=== PATIENT | male | born 1970 | race Caucasian/White ===

== ENCOUNTER 2024-07-24 06:10 | Day surgery (SDC) | payer OTHER, SELFPAY ==
--- NOTE | 2024-07-23 11:14 | HPE_ITS ---
Date of service: 07/24/24 Time of Service: 10:21 Assessment and Plan Assessment and plan (1) Inguinal hernia, bilateral: Status: Acute Assessment and plan: Bilateral inguinal hernias, right greater than left. The patient was provided with a hernia booklet. The potential risks and benefits of hernia repair surgery were discussed with him. Post-surgery, he was advised to apply ice to the surgical area and to alternate between Tylenol and ibuprofen for the first 3 days. He was also advised to avoid heavy lifting and driving for 3 days post-surgery. Patient does desire repair and we will go ahead and schedule him for surgery today. Pt did Stop smoking. Patient has not had a low-dose lung screening CT is encouraged to do this Patient has not had a colonoscopy is encouraged to do this as well. I discussed the nature of inguinal hernias with the patient: how they form, and consequences of incarceration.? We discussed the warning signs of incarcerations (Severe pain/hardness and inability to reduce the hernia/vomiting/redness and fever) ?and when/how to seek medical attention (our office/PCP or ED).? ?I discussed the surgery in detail and the complications related to the surgery and the anesthesia.? I do recommend that the pt have a nerve block for postop pain control.? We also discussed multi-modality pain management.? Pt. expressed understanding; all questions were answered to the patient satisfaction and they do wish to proceed with surgery.? Patient was given an educational booklet & and a copy of the postop instructions and expressed understanding of how to care for themselves after surgery. Risks of the surgery include but are not limited to: Bleeding/infection/pneumonia/damage to blood vessels or bladder or?bowels/blood clots or PE/chronic pain/urinary retention/chronic numbness/reoccurrence/reaction to mesh requiring removal/damage to testicle or sterility/complications of anesthesia.?We also discussed the possibility of postop urinary retention and swelling/ bruising. ?The pt will have a pre-Op PE to ensure fitness for anesthesia, and preOp cardiac testing as deemed necessary. ?The procedure will be done with abx and under sterile conditions. This is an outpt day surgery.? ??The pt requires a ride home from surgery and someone to stay with the pt for 24 hrs after anesthesia.? No lifting over 5 pounds for 2-3 weeks after surgery.? Also take Miralax postop to avoid constipation. (2) GERD (gastroesophageal reflux disease): Status: Chronic (3) Former smoker: Status: Acute (4) Hiatal hernia with GERD without esophagitis: History of Present Illness Narrative: Patient is here today for R inguinal hernia repair. They not having any chest pain or shortness of breath, currently.? They are not experiencing any fever or chills.? They deny any productive cough or upper respiratory tract infection signs or symptoms.? They are not having abdominal pain, or nausea and vomiting.? They have not had any changes in medications, past medical history or past surgical history since previously being seen in the office. They have not had any accidents or have been in the ER since the clinic pre-operative evaluation. ??I reviewed the procedure with the patient today, including risks and benefits of the procedure, and what they could expect at home for recovery.? All questions are answered to the patient?s satisfaction today, and they are stable to proceed with the proposed procedure. 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 Pt reports right side worse than left, pain level today is 0/10. Pt notes lifting brings pain on. 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 quit smoking 2 months ago mi/cva- no CDM- no denies pulmonary GERD- occ none since he stopped eating abanaas. PSHX L shoulder shoulder R index finger- foreign body anesthesia: no problems The patient is a 52-year-old male who presents for evaluation of bilateral inguinal hernias, right greater than left. He has been living with the hernias since 2017, but they are now causing him discomfort. He has no history of heart attack or stroke, and does not experience chest pain or shortness of breath when climbing stairs. He is not diabetic. He also denies any emphysema, sleep apnea, or asthma. He occasionally experiences heartburn and indigestion, for which he takes Rolaids with his lunch pill and Tums. He is not currently on any medication for these symptoms. Since e liminating bananas from his diet, he has not experienced heartburn. His surgical history includes left shoulder surgery to repair a tendon, right hand surgery to remove metal from the index finger, and left shoulder surgery. He has no known problems with anesthesia. He denies any pain, difficulty moving his bowels, or blood in his stools. He has gained weight but denies any unexplained weight loss . He denies any constipation or straining with bowel movements or urination. He has never had hernia repairs. His job does not involve heavy lifting. Review of Systems All systems reviewed & are unremarkable except as noted in HPI and below PFSH All Active Problems Former smoker (Acute) GERD (gastroesophageal reflux disease) (Chronic) Inguinal hernia, bilateral (Acute) Medical History Erectile dysfunction Pain in left foot Elevated blood pressure reading without diagnosis of hypertension Furuncle Hiatal hernia with GERD without esophagitis Varicocele Anxiety Herpes simplex virus (HSV) infection Social History Smoking/Tobacco Use Status: Former Tobacco Use Quit Date: 03/17/24 Smoking risk assessment performed?: Yes Alcohol Intake: current Alcohol Intake frequency: a few times a week Drug use: Never Substance use type: does not use Housing: house Do you feel safe at home: Yes Do you feel safe in your relationship?: Yes Meds Allergies and Home Medications Allergies Allergy/AdvReac Type Severity Reaction Status Date / Time No Known Allergies Allergy Verified 07/24/24 06:17 Home Medications ?Medication ?Instructions ?Recorded ?Confirmed ?Type valacyclovir 1 gram tablet 1,000 mg PO DAILY 04/30/24 07/23/24 History (Valtrex) Exam Narrative Exam Narrative: PHYSICAL EXAM GENERAL APPEARANCE: Alert, healthy appearance, oriented, x 3,? in no acute distress HYDRATION: Well hydrated HEAD, EYES, EARS, NECK, THROAT: Head is normocephalic, pupils equal, round, reactive to light and accommodation, ocular movement intact, sclera clear and no jaundice. ?Dentition intact. LUNGS: normal respiration/normal chest excursion. ?Clear to auscultation bilaterally. ?No wheeze. ?HEART: Regular rate and rhythm. no murmurs ABDOMEN: soft and non-tender to palpation.? Normal bowel sounds.? R ing hernia: Time Spent Time spent with Patient: <40 minutes Time was spent: preparing to see the patient(eg.review tests), obtaining and/or reviewing separately otained hiistory, ordering medications,tests, procedures, referring, communicating with other health restorative care technician, indepentently interpreting results, counseling the patient, care coordination and other
--- NOTE | 2024-07-23 11:21 | PDOC.DSDIS_ITS ---
Date of service: 07/24/24 Time of Service: 10:21 Discharge Plan Disposition Patient Disposition: Home Condition: Good Discharge Details Reason For Visit: hernia repair Attending Provider: Thao Blanton Primary Care Provider: Jeanette Fernando Home Meds and New Rx's Prescriptions: New tramadol 50 mg tablet 50 mg PO Q6H PRNQty: 14 0RF Continued valacyclovir [Valtrex] 1 gram tablet 1,000 mg PO DAILY Discharge Instructions Additional Instructions: Dr. Blanton HERNIA REPAIR ? POSTOPERATIVE INSTRUCTIONS Patients who have this type of surgery can usually be expected to return to work within two weeks and have minimal amounts of discomfort. ? ACTIVITY: The day of surgery should be spent resting. However, you can be up for short periods of time, I.E., going to the bathroom or kitchen. Avoid lifting or straining. On the day following surgery, you can be up and about as desired. ? LIFTING: Restrict your lifting to no more than five (5) pounds for two weeks after surgery. ??We will decide when you are done with restrictions and when you can return to work, at your follow-up appointment.? No sexual activity for two weeks.? ? DIET: There are no dietary restrictions following surgery. However, you may want to start with small amounts of liquids to avoid nausea the day of surgery. ? INCISION CARE: You will notice purple skin glue closing the incision.? Do not peel this off- it will wear off on its own.? After 24 hours you may shower. The dressing may be replaced for comfort, but is not necessary. ?An ice bag may be applied to the incision for 72 hours following surgery. ? SIGNS OF INFECTION: It is not unusual to have some black and blue discolorati on of the skin around the incision, but also scrotum and penis.? ?It will slowly disappear. If you have any increased redness, drainage, fever (above 100 degrees), please contact your doctor for an examination. ? DISCOMFORT: You may expect to have some mild discomfort at the incision sight. If severe pain develops you should contact your doctor for further instructions. ? URINATION: Patients who have surgery occasionally have problems urinating. If you experience problems and are not able to urinate within 6 hours following your surgery, please call your doctor immediately or go to your nearest Emergency Room for evaluation. ? DRIVING: NO driving for three (3) days after surgery, or if you are still taking narcotic pain medication.? ? MEDICATIONS: Alternate Tylenol 1000mg by mouth every 8 hours and Ibuprofen 600mg every 6 hours. ?Make sure you take ibuprofen with food and not on an empty stomach. ?Take the Tylenol and ibuprofen continuously for the first 72hrs- not just when you have pain.? Use the tramadol for breakthrough pain/pain >7.? Use ICE!?? Twenty minutes on, and then off, continuously for the first 72hours. If you are taking narcotic pain medication, follow the instructions on the label and do not drive. Pain medications can make you very constipated. Make sure you are moving your bowels daily. If not, take Miralax or Milk of Magnesia.?? Anesthesia makes you very constipated.? Take a dose of milk of magnesia the morning after surgery. ? REPORT: Unusual swelling, severe pain, unresolved nausea, signs of infection, or difficulty in urination to your surgeon. Follow up in clinic with Dr. Blanton in 2 weeks.? [phone] Activity:: see above Remove Dressings/Wound Care:: 24 hours Shower/Bathe:: 24 hours Diet:: As Tolerated Discharge Orders Discharge Orders: Discharge Order (Routine); Ordered 07/24/24 Ordered By: Thao Blanton DS: Diagnosis Discharge Diagnosis (1) Inguinal hernia, bilateral: Status: Acute Asessment and Plan: The patient is doing well post-op from their b/l inguinal surgery.? They are having no nausea or vomiting. They are tolerating liquids and a snack. The pt is not having any chest pain or SOB.? Their pain is adequately controlled. They have been able to urinate.? ?HEENT:? no eye pain/drainage/redness/swelling. Mild sore throat ?Cardio- NSR, no chest pain, BP stable- see VS record ?Pulm: no sob or productive cough. No hemoptysis ?Incision- dressing is c/d/i w/ no excessive bleeding or drainage ?I discussed with the patient the findings at the time of surgery and the patient?s progress. ?We reviewed expectations at home; what the patient could expect for recovery time, and in the post-operative period.? We discussed the importance of walking to avoid blood clots and pneumonia.? We discussed and reviewed the patient's post-operative wound care and dressing needs.?? We reviewed their step-singh pain management plan, Rx called to the pharmacy of their choice.? We reviewed activity and limitations-see discharge instructions. We reviewed warning signs, and when to seek medical attention- see d/c instructions.?? Patient was given a postoperative follow-up appointment. Patient verbalized understanding of their postoperative instructions, how do to take care of themselves and their incision, and the pain management plan. Please see discharge instructions.? (2) GERD (gastroesophageal reflux disease): Status: Chronic (3) Former smoker: Status: Acute (4) Hiatal hernia with GERD without esophagitis:
[2024-07-24] VITALS (36 sets, daily range): BP systolic 91–144; BP diastolic 66–102; PULSE 49–77; RESP 11–19; TEMP 36.1–36.7; O2SAT 95–100; BMI 29.9
[2024-07-24] MEDS: Gabapentin 300 MG CAP 600 MG PO (06:38)
[2024-07-24] MEDS: Acetaminophen 500 MG TAB 1000 MG PO (06:38)
[2024-07-24] MEDS: Lactated Ringers 1,000 ML 80 ML IV (07:20)
--- NOTE | 2024-07-24 07:21 | W.ANESPRE ---
General Info Date of Service Date Performed: 07/24/24 Height: 5 ft 10 in Weight: 94.7 kg Body Mass Index (BMI): 29.9 Surgical Procedure: Operation Date: 07/24/24 07:40 Proposed Procedure Side Surgeon p Herniorrhaphy Inguinal w/Mesh Bilateral Thao Blanton DO Meds Allergies and Home Medications Allergies Allergy/AdvReac Type Severity Reaction Status Date / Time No Known Allergies Allergy Verified 07/24/24 06:17 Home Medication ?Medication ?Instructions ?Recorded valacyclovir 1 gram tablet 1,000 mg PO DAILY 04/30/24 (Valtrex) Current Visit Medications: Current Medications Generic Name Dose Route Start Last Admin Trade Name Freq PRN Reason Stop Dose Admin Acetaminophen 1,000 mg 07/24/24 06:00 07/24/24 06:38 Acetaminophen 500 Mg Tab PO 07/24/24 23:59 1,000 mg PREOP VERN Administration Gabapentin 600 mg 07/24/24 06:00 07/24/24 06:38 Gabapentin 300 Mg Cap PO 07/24/24 23:59 600 mg PREOP VERN Administration Ringer's Solution 1,000 mls @ 80 mls/hr 07/24/24 06:00 07/24/24 07:20 IV 07/24/24 23:59 80 mls/hr INFUSION VERN Administration Cefazolin Sodium/Dextrose 2 gm in 50 mls @ 100 mls/hr 07/24/24 06:00 Ancef Duplex IVPB 07/24/24 23:59 PREOP VERN Ondansetron HCl 4 mg/ Sodium 52 mls @ 200 mls/hr 07/24/24 11:19 Chloride IVPB 08/23/24 11:18 Q6H PRN PRN IV Miscellaneous Supplies 1 each 07/24/24 06:00 Iv Access IV 07/24/24 23:59 DIRECTED VERN Morphine Sulfate 2 mg 07/24/24 11:19 Morphine 4 Mg/Ml Syr IVP 08/23/24 11:18 Q1H PRN PRN Sodium Chloride 0 ml 07/24/24 06:00 Normal Saline Flush 10 Ml Syr IV 07/24/24 23:59 PRN PRN Sodium Chloride 0 ml 07/24/24 06:00 Normal Saline 10 Ml Vial IJ 07/24/24 23:59 DIRECTED PRN Sterile Water 0 ml 07/24/24 06:00 Water,Injection,Sterile 10 Ml Vial IJ 07/24/24 23:59 DIRECTED PRN Tramadol HCl 50 mg 07/24/24 11:19 Tramadol 50 Mg Tab PO 08/23/24 11:18 Q6H PRN PRN Pain PFSH Active Problems Active Problems: Problem Status Onset Code Former smoker Acute Z87.891 GERD (gastroesophageal reflux disease) Chronic K21.9 Inguinal hernia, bilateral Acute K40.20 Medical History Medical History Erectile dysfunction Pain in left foot Elevated blood pressure reading without diagnosis of hypertension Furuncle Hiatal hernia with GERD without esophagitis Varicocele Anxiety Herpes simplex virus (HSV) infection Tobacco Smoking/Tobacco Use Status: Former Tobacco Use Alcohol Alcohol Intake: current Alcohol intake frequency: a few times a week Substance Use Substance use: Never Substance use type: does not use Vital Signs and Lab Results Vital Signs Most Recent Vital Signs in EMR: Most Recent Vital Signs Temp Pulse Resp BP Pulse Ox 36.7 C 77 18 144/102 H 97 07/24/24 06:19 07/24/24 06:19 07/24/24 06:19 07/24/24 06:19 07/24/24 06:19 Lab Results Blood Type / Crossmatch: No Data to Display Complete Blood Count: No Data to Display Complete Metabolic Panel: No Data to Display Liver Function Panel: No Data to Display Coagulation Panel: No Data to Display Cardiac Panel: No Data to Display Arterial Blood Gas: No Data to Display Venous Blood Gas: No Data to Display Pancreas Panel: No Data to Display Thyroid Panel: No Data to Display Infectious Disease: No Data to Display Blood Cultures: No Data to Display Toxicology Panel: No Data to Display Anesthesia Assessment and Plan Anesthesia History Personal History: No History of Anesthesia Complications Family History: No Family History of Anesthesia Complications Exercise Tolerance Exercise Tolerance: Metabolic Equivalents>4 Pertinent Negatives Pertinent Negatives: No Symptoms of GERD (occasional tums, denies DOS), No Major Cardiovascular Symptoms or Complaints, No Major Pulmonary Symptoms or Complaints and No History of CVA/TIA Cardiac & Pulmonary Exam Cardiac Exam: Normal S1/S2 Heart Sounds Pulmonary Exam: Clear Bilateral Breath Sounds Implantable Cardiac Device Does patient have a Pacemaker or an ICD?: No Airway Exam Known Difficult Airway: No Mallampati Class: 3 Mouth Opening: Normal (> 3cm) Thyromental Distance: Greater than 3 cm Facial Hair: Full Armas Neck Range of Motion: Full ROM Neck Circumference: Normal Teeth Condition: Edentulous ASA Classification ASA Score: ASA 2 Emergency Case?: No NPO Status NPO Status: NPO Clears >2 hours, Solids >8 hours Anesthesia Plan Resuscitation Status: Full Code Anesthesia Technique: General Anesthesia Airway Planned: LMA Monitors Used: Standard Monitors and SedLine Preoperative Comments:: Significant PMH: GERD Plan General LMA w/ bilateral anterior TAP blocks, sedline, adequate IV access.
[2024-07-24] MEDS: ceFAZolin 2 GM/50 ML BAG IVPB (08:07)
--- NOTE | 2024-07-24 08:14 | W.ANESNERVE ---
Nerve Block Single Injection Procedure Date and Time Date Performed: 07/24/24 Procedure Start: 07:50 Location Where Procedure Performed Procedure Location: Operating Room Procedure Stop: 08:05 Reason Performed: Postoperative Analgesia Requesting Provider: Thao Blanton Timeout Performed Timeout Performed: Yes Monitoring Used ECG, Blood Pressure, SpO2, ETCO2 and See EMR for corresponding vital signs Sterility Sterility: Hand Hygiene, Surgical Cap, Surgical Mask, Sterile Gloves, Eye Protection and Chlorhexidine Sedation Given During Procedure Sedation Given (Indicate Dose Given): No Sedation given Patient Mental Status Patient Mental Status: Performed under general anesthesia Nerve Block 1st Nerve Block: Laterality: Bilateral Block Type: TAP Bilateral (anterior TAP ) Ultrasound Image Saved?: Yes Needle / Catheter Used: 100mm SonoPlex II Local Anesthetic Bolus (Indicate Dose Given): Lidocaine used for local infiltration of skin, Injected in 3-5ml increments after negative blood aspiration, Half of Total block solution given into each side, Bupivacaine 0.25% Dose:: 20ml and Exparel Dose:: 20ml Additives (Indicate Dose Given): None Ultrasound: Sterile probe cover and gel used Nerve Stimulator: Not Used Paresthesia: None Procedure Tolerated: No Complications and Patient tolerated well Procedure Outcome: Successful Performed By: Lefty Llanes Supervised By: Emeka Boss
[2024-07-24] MEDS: Bupivacaine 0.25% Pres-Free W/EPI 30 ML VIAL (08:18)
--- NOTE | 2024-07-24 10:27 | W.PM.OP ---
Date of service: 07/24/24 Time of Service: :27 Operative Note Operative Note DATE OF PROCEDURE: 07/24/24 PRE-OP DIAGNOSIS: b/l inguinal hernia L>R POST-OP DIAGNOSIS: other (direct) PROCEDURE: open bilateral inguinal hernias direct w/mesh SURGEON: Fabiana Bernabe SPORTS EQUIPMENT SUPERVISOR: Mera Porras ANESTHESIA TYPE: Local By Surgeon, General LMA/ETT and Primary Nerve Block Refer to Anesthesia Record ESTIMATED BLOOD LOSS: 5 PATHOLOGY: none sent COMPLICATIONS: None Patient was transported to: PACU Patient's condition: stable Procedure Description: INDICATIONS: The pt is here today for surgery regarding symptomatic b/l inguinal hernia that has failed outpatient conservative medical management, and he is here today for repair. Informed consent was obtained, explaining risks and benefits of the procedure including but not limited to: bleeding, infection, pneumonia, blood clots, chronic pain, chronic numbness, damage to testicle resulting in removal, recurrence of hernia, reaction to Mesh necessitating removal, and other unforetold complications, and complications of anesthesia-which were addressed by the IMAGING SYSTEM ADMINISTRATOR. The patient is marked in preOp prior to the procedure The right side is attended to first DESCRIPTION OF PROCEDURE:? The pt is then brought to the operative room suite. Anesthesia was administered per the Department of Anesthesia.Block is done per anethesia. The patient was prepped and draped in the usual sterile fashion using ChloraPrep scrub solution. Pause for the cause was done. He did receive preop IV antibiotics, and 30 mL of .25% Marcaine w/ epinephrine was used for local anesthetization. A #12 blade was used to make an incision over the external ring. Electrocautery used to provide hemostasis and dissect down to the fascia. The internal Bleich is then opened using a Metzenbaums. The cord is elevated. The nerve was not identified. There is a very small cord lipomas.? Electro-cautery is used to provide hemostasis. A Sivakumar drain was placed around the cord to assist in mobilization. The cord was explored. There was no hernia sac on the cord. There is a large direct hernia sac is pushing through the floor. The transversalis in this area is pretty much obliterated. The sac is elevated and scored and inverted. A large size mesh plug was then placed into the defect and sewn into transversalis, using 2-0 vicryl. ?The patch was then placed on the floor, and sewn in using 2-0 Vicryl; onto the pubic tubercle, and the shelving portions of the inguinal ligament, in the standard Boris fashion. The tails of the mesh patch are brought around the cord and sewn together with 2-0 Vicryl, and tacked under the external oblique.? The wound was copiously irrigated. There was no bleeding noted. The drain was removed. ?All structures are returned to normal anatomical position. The nerve is out of the way of the suturing and not caught w/ in any sutures or the mesh.? The external oblique is re-approximated using 2-0 vicryl in a running fashion.? ?Deep tissue was approximated with 3-0 Vicryl and skin was approximated with 4-0 Monocryl in a running subcuticular fashion. Skin glue sterile dressings are applied. The left side is then attended to with the same fashion. There is no cord lipoma. He does have a very large direct hernia on the left. This does contain omentum. We are unable to get good position with the plug with the omentum in place. So the sac was opened and the omentum excised. An extra-large plug is then placed in the defect and oversewn. And then a mesh patch placed into the floor in the usual fashion. The patient tolerated the procedure without complications to recovery in stable condition. FABIANA BERNABE, DO
[2024-07-24] MEDS: Normal Saline 10 ML VIAL IJ (10:28)
[2024-07-24] MEDS: HYDROmorphone 2 MG/ML SYR IVP ×3 (10:28→10:59)
[2024-07-24] MEDS: LORazepam 2 MG/ML VIAL 0.5 MG IVP (10:51)
--- NOTE | 2024-07-24 13:22 | W.ANESPOSTOP ---
Postoperative Evaluation Date, Time and Location Date Performed: 07/24/24 Time Performed: 13:06 Patient Location: Day Surgery Unit Vital Signs Most Recent Imported Vital Signs: Most Recent Vital Signs Temp Pulse Resp BP Pulse Ox 36.5 C 75 18 115/76 97 07/24/24 12:57 07/24/24 12:57 07/24/24 12:57 07/24/24 12:57 07/24/24 12:57 Pain Score Most Recent Pain Score: Most Recent Pain Score Pain Level 5 07/24/24 11:46 Assessment Mental Status: Awake (Alert & Oriented to Patient Baseline) Airway and Respiratory Function: Patent airway with normal (patient baseline) respiratory exam Cardiovascular Function: Hemodynamically Stable Hydration Status: Adequately Hydrated Nausea & Vomiting: No Nausea or Vomiting Pain: Pain is tolerable per patient Peripheral Nerve Block: Regional nerve block not resolved at time of post operative discharge
== END 2024-07-24 14:16 | disposition home or self-care (01) ==
LOC: SUR 06:10
PROVIDERS: PCP Family Medicine; Visit Provider Surgery
PROC: (CPT 49505; principal; 2024-07-24 07:30)
DX: K40.20 Bilateral inguinal hernia, without obstruction or gangrene, not specified as recurrent (principal); K21.9 Gastro-esophageal reflux disease without esophagitis; Z87.891 Personal history of nicotine dependence; K44.9 Diaphragmatic hernia without obstruction or gangrene
CPT/HCPCS: 49505; 76942; C1781; C9290; J0665; J0690; J1100; J1171; J1885; J2060; J2250; J2405; J2704; J3010

== ENCOUNTER 2024-10-25 15:12 | Outpatient (REF) | payer OTHER, SELFPAY ==
[2024-10-25 21:25] LABS: Abs Immature Grans 0.01 10^3/uL (0.0-0.06); Absolute Basophil Count 0.06 10^3/uL (0.0-0.2); Absolute Lymphocyte Count 2.01 10^3/uL (1.2-3.4); Absolute Monocyte Count 0.69 10^3/uL (0.1-0.8); Absolute Neutrophil Count 2.67 10^3/uL (1.2-6.7); Eosinophils % 5.2 %; HGB 15.6 g/dL (13.5-17.5); Immature Grans % 0.2 %; MCH 31.4 pg (27.0-33.0); MCHC 34.7 % (32.0-36.0); MCV 91 fL (80-95); MPV 11.6 fL (8.0-11.0); Neutrophils % 46.6 %; Platelet Count 198 10^3/uL (130-400); RBC 4.97 10^6/uL (4.36-5.78); RDW 11.7 % (11.8-14.1); RDW-SD 38.5 fL; WBC 5.74 10^3/uL (4.4-10.8)
[2024-10-25 21:44] LABS: ALT 40 U/L (16-63); Albumin 3.8 g/dL (3.4-5.0); Alkaline Phosphatase 82 U/L (46-116); Anion Gap 5.8 mmol/L (3-11); BUN 19 mg/dL (7-18); Bilirubin, Total 0.38 mg/dL (0.2-1.0); CO2 31.2 mmol/L (21.0-32.0); Chloride 104 mmol/L (98-107); Estimated GFR 91.12 (mL/min/1.73m2); Glucose 99 mg/dL (74-106); Magnesium 1.8 mg/dL (1.8-2.4); Potassium 4.2 mmol/L (3.5-5.1); Sodium 141 mmol/L (136-145); Total Protein 6.7 g/dL (6.4-8.2)
[2024-10-25 22:05] LABS: AST 22 U/L (15-37)
== END 2024-10-25 15:13 | disposition home or self-care (01) ==
LOC: NCHCN 15:12
PROVIDERS: PCP Family Medicine; Visit Provider Family Medicine
DX: M62.81 Muscle weakness (generalized) (principal)
CPT/HCPCS: 80053; 83735; 85025